=== PATIENT | female | born 1940 | race Caucasian/White ===

== ENCOUNTER 2024-07-30 10:31 | Emergency (ER) | payer OTHER ==
[2024-07-30] MEDS: LIDOCAINE 5% TOPICAL PATCH TP ONE (10:54)
[2024-07-30] MEDS: METHOCARBAMOL 500 MG TABLET PO ONE (10:54)
[2024-07-30] MEDS ORDERED: LIDOCAINE 5% TOPICAL PATCH ONE (11:01)
[2024-07-30] MEDS ORDERED: METHOCARBAMOL 500 MG TABLET ONE (11:01)
[2024-07-30 11:13] VITALS: BP 127/56; PULSE 74; RESP 18; TEMP 98.8; BMI 23.6
[2024-07-30] MEDS ORDERED: IBUPROFEN 400 MG TABLET (FP) PO ONE (13:19)
[2024-07-30] MEDS ORDERED: ACETAMINOPHEN 325 MG TABLET (FP) ONE (13:23)
[2024-07-30] MEDS: ACETAMINOPHEN 325 MG TABLET (FP) PO ONE (13:25)
[2024-07-30] MEDS ORDERED: KETOROLAC TROMETHAMINE 30 MG/1 ML VIAL ONE (14:02)
[2024-07-30] MEDS: KETOROLAC TROMETHAMINE 30 MG/1 ML VIAL IM ONE (14:07)
[2024-07-30] MEDS ORDERED: LIDOCAINE PATCH REMOVAL MC ONE (22:00)
== END 2024-07-30 15:06 | disposition home or self-care (01) ==
LOC: FER 10:31
PROC: 3E0133Z Introduction of Anti-inflammatory into Subcutaneous Tissue, Percutaneous Approach (ICD-10-PCS; principal; 2024-07-30)
DX: M54.50 Low back pain, unspecified (principal)
CPT/HCPCS: 96372; 99284-25